=== PATIENT | male | born 1945 | race Caucasian/White ===

== ENCOUNTER 2018-03-31 06:20 | Emergency (ER) | payer MEDICARE, OTHER ==
[~2018-03-31 06:20] MED LIST: AEC81 PO; DIPH50 PO; EYE VITAMIN PO; FOLI1TAB15 PO; LEVO500T2 PO; METH25VI17 IJ; NAPR-1192 PO; PANT40TA25 PO; TUMERIC PO
== END 2018-03-31 07:24 | disposition home or self-care (01) ==
LOC: EDH 06:20
DX: R09.1 Pleurisy (principal); R05 Cough; R42 Dizziness and giddiness
CPT/HCPCS: 71045

== ENCOUNTER 2018-06-09 09:29 | Observation (INO) | payer OTHER ==
[~2018-06-09] VITALS: Ht 193 cm; Wt 113.4 kg
[2018-06-09 12:01] LABS: BASOPHILS % (AUTO) 0.5 % (0.0-5.0); EOSINOPHILS % (AUTO) 4.5 % (0.0-8.0); HEMATOCRIT 42.4 % (42-54); LYMPHOCYTES % (AUTO) 11.6 % (21.0-51.0); MEAN CORPUSCULAR HEMOGLOBIN 29.4 pg (27.0-33.0); MEAN CORPUSCULAR HGB CONC 33.4 g/dL (32.0-36.0); NEUTROPHILS % (AUTO) 75.4 % (40.0-77.0); PLATELET COUNT (AUTO) 148 K/uL (130-400); RED BLOOD CELL COUNT(AUTO) 4.82 MIL/uL (4.50-6.20); RED CELL DISTRIBUTION WIDTH 17.1 % (11.0-15.5)
[2018-06-09 12:16] LABS: POTASSIUM 4.4 mmol/L (3.5-5.1)
[2018-06-09 12:21] LABS: ALBUMIN 3.6 g/dL (3.5-5.0); BILIRUBIN,TOTAL 0.6 mg/dL (0.2-1.0); TOTAL PROTEIN, SERUM 7.1 g/dL (6.0-8.3)
[2018-06-09 13:09] LABS: APPEARANCE,URINE Clear (CLEAR); BILIRUBIN,URINE Negative (NEGATIVE); COLOR,URINE Yellow (YELLOW); GLUCOSE, URINE (UA) Negative (NEGATIVE); KETONES,URINE Negative (NEGATIVE); LEUKOCYTE ESTERASE ,URINE Negative (NEGATIVE); NITRATE,URINE Negative (NEGATIVE); OCCULT BLOOD,URINE Negative (NEGATIVE); PROTEIN,URINE Negative (NEGATIVE)
[2018-06-09] MEDS ORDERED: ACETAMINOPHEN 325 MG TAB PO PRN (15:15)
[2018-06-09] MEDS ORDERED: MORPHINE SULFATE 2 MG/ML 1ML SYG IV PRN (15:15)
[2018-06-09] MEDS ORDERED: HYDRALAZINE HCL 20 MG/ML VIAL IV PRN (15:15)
[2018-06-09] MEDS ORDERED: ONDANSETRON HCL 4 MG/2 ML VIAL IV PRN (15:15)
[2018-06-09] MEDS ORDERED: CLINDAMYCIN 600 MG/D5% WATER 50 ML IV SCH (15:15)
[2018-06-09 18:00] VITALS: BP 159/84
[2018-06-09] MEDS ORDERED: CLIN300C9 PO (18:43)
--- NOTE | 2018-06-09 19:20 | NUR ---
Notified Dr. Heaton of consult. rec'd orders to feed patient tonight.
[2018-06-09 19:35] VITALS: BP 152/84
[2018-06-09] MEDS ORDERED: FAMOTIDINE 20MG TAB 20 MG TAB PO SCH (21:00)
[2018-06-09] MEDS: CLINDAMYCIN 600 MG/D5% WATER 50 ML IV SCH (21:13)
[2018-06-09 23:09] VITALS: BP 137/73
[2018-06-10] VITALS (21 sets, daily range): BP systolic 114–155; BP diastolic 71–90
[2018-06-10] MEDS ORDERED: DIPHENHYDRAMINE HCL 50 MG CAPSULE PO PRN (00:30)
[2018-06-10] MEDS: CLINDAMYCIN 600 MG/D5% WATER 50 ML IV SCH ×3 (05:14→20:51)
[2018-06-10] MEDS: ENOXAPARIN SODIUM 30 MG/0.3 ML SQ SCH (08:37)
[2018-06-10] MEDS: PANTOPRAZOLE SODIUM 40 MG TABLET.DR PO SCH (08:37)
[2018-06-10] MEDS: ASPIRIN 81 MG EC TAB PO SCH (08:37)
--- NOTE | 2018-06-10 08:38 | NUR ---
DR. LEVI IN ROOM FOR INITIAL CONSULT WITH PT. REC'D ORDERS TO SCHEDULE FOR CUTTING OF SKIN AND REMOVAL OF FOREIGN BODY LEFT FOOT. RISKS AND BENEFITS DISCUSSED WITH PT BY . SCHEDULED PO MEDS AND LOVENOX HELD DUE TO TODAY'S PROCEDURE.
[2018-06-10] MEDS ORDERED: KETAMINE 50MG/ML SYRINGE 50 MG/ML DISP.SYRIN IV ONE (11:00)
[2018-06-10] MEDS ORDERED: MIDAZOLAM HCL 1 MG/ML 2ML VIAL ONE (11:04)
[2018-06-10] MEDS ORDERED: PROPOFOL 10 MG/ML 20ML VIAL IV ONE (11:04)
[2018-06-10] MEDS ORDERED: LIDOCAINE HCL 1% 20 ML VIAL ONE (11:07)
[2018-06-10] MEDS ORDERED: BUPIVACAINE/PF 0.5% 10ML VIAL ONE (11:08)
--- NOTE | 2018-06-10 12:45 | NUR ---
PT RETURNED FROM PACU S/P LEFT FOOT FOREIGN BODY REMOVAL. PER REPORT FROM PACU NURSE DAMEON, SMALL GLASS SHARD WAS REMOVED. DRESSING TO LEFT FOOT IS GAUZE AND ATIYA WRAP. IT IS CLEAN, DRY, AND INTACT. GOOD CAPILLARY REFILL TO TOES DISTAL TO BANDAGE. NORMAL SENSATION, TEMP, AND MOVEMENT TO DIGITS. POST OP VITALS INITIATED AND WNL. CALL LIGHT AND BEDSIDE TABLE IN EASY REACH. AT SIDE.
[2018-06-10] MEDS ORDERED: HYDROCODONE/ACETAMINOPHEN 5/325 MG TAB PO PRN (14:45)
[2018-06-11 00:11] VITALS: BP 150/81
[2018-06-11 04:00] VITALS: BP 121/69
[2018-06-11] MEDS: CLINDAMYCIN 600 MG/D5% WATER 50 ML IV SCH ×2 (05:24→13:39)
[2018-06-11 05:29] LABS: HEMATOCRIT 41.9 % (42-54); MEAN CORPUSCULAR HEMOGLOBIN 29.4 pg (27.0-33.0); MEAN CORPUSCULAR HGB CONC 33.2 g/dL (32.0-36.0); MEAN CORPUSCULAR VOLUME 88.6 fL (79-99); NUCLEATED RED BLOOD CELLS 0.1 % (0.0-0.19); PLATELET COUNT (AUTO) 162 K/uL (130-400); RED BLOOD CELL COUNT(AUTO) 4.73 MIL/uL (4.50-6.20); RED CELL DISTRIBUTION WIDTH 17.1 % (11.0-15.5); WHITE BLOOD COUNT (AUTO) 7.7 K/uL (4.8-10.8)
[2018-06-11 05:37] LABS: CREATININE 1.2 mg/dL (0.5-1.5); POTASSIUM 4.7 mmol/L (3.5-5.1)
[2018-06-11] MEDS: PANTOPRAZOLE SODIUM 40 MG TABLET.DR PO SCH (09:08)
[2018-06-11] MEDS: ASPIRIN 81 MG EC TAB PO SCH (09:08)
[2018-06-11] MEDS: ENOXAPARIN SODIUM 30 MG/0.3 ML SQ SCH (09:08)
[2018-06-11 09:12] VITALS: BP 133/73
[2018-06-11 12:09] VITALS: BP 135/77
--- NOTE | 2018-06-11 15:17 | NUR ---
Discharge teaching completed in the room with pt and at side. Emphasis on dx, s/s to monitor for, and when to seek emergency care / call 911. Emphasis on Dr. Heaton's orders for activity (heel walking with walker and post op shoe to left foot), and incision care (daily dressing changes with betadine, gauze.) No new rx. Unable to make appointments for follow up as today is Tuesday, but pt understands he must call to schedule for 3 days with PCP and [address] Heaton. All questions addressed. PIV removed, tip intact. Dressed with sterile 2x2 and tape after hemostasis. [facility] by [facility] staff for transport home via private vehicle. Pt in stable condition at time of discharge.
[2018-06-16] MEDS ORDERED: METHOTREXATE SODIUM/PF 25 MG/ML ML IJ SCH (09:00)
== END 2018-06-11 15:45 | disposition home or self-care (01) ==
LOC: EDH 09:29 → EDHIP 15:11 → 4CH 18:16
PROVIDERS: ADMIT Internal Medicine; ATTEND Internal Medicine
DX: M65.9 Synovitis and tenosynovitis, unspecified (principal); S90.852A Superficial foreign body, left foot, initial encounter; M79.672 Pain in left foot; I25.10 Atherosclerotic heart disease of native coronary artery without angina pectoris; I44.0 Atrioventricular block, first degree; I45.10 Unspecified right bundle-branch block; S91.332A Puncture wound without foreign body, left foot, initial encounter; W25.XXXA Contact with sharp glass, initial encounter; W45.8XXA Other foreign body or object entering through skin, initial encounter; Y93.89 Activity, other specified; Y92.89 Other specified places as the place of occurrence of the external cause; Y99.8 Other external cause status; Z95.1 Presence of aortocoronary bypass graft
CPT/HCPCS: 10120; 36415 ×2; 71045; 73630; 76882; 80048; 80053; 81003; 82550; 84484; 85025; 85027; 87070; 87076; 87205; 88300; 93005; 96365; 96366 ×2; 96372; 96375; 97116; 97161; 99284; A4649; A6446; G0378 ×49; G8978; G8979; G8980; G8981; G8982; G8983; J1650; J2250; J2704; J3490 ×8; J7120

== ENCOUNTER 2019-04-27 16:37 | Emergency (ER) | payer OTHER ==
[~2019-04-27 16:37] MED LIST changes: +CLIN300C9 PO; -LEVO500T2 PO; -NAPR-1192 PO; -TUMERIC PO
[2019-04-27] MEDS ORDERED: ASPIRIN 325 MG TABLET ONE (16:45)
[2019-04-27] MEDS ORDERED: NITROGLYCERIN 1GM/1 INCH PACKET TD ONE (17:04)
[2019-04-27 17:08] LABS: BASOPHILS % (AUTO) 0.5 % (0.0-5.0); EOSINOPHILS % (AUTO) 1.4 % (0.0-8.0); HEMATOCRIT 39.3 % (42-54); LYMPHOCYTES % (AUTO) 9.8 % (21.0-51.0); MEAN CORPUSCULAR HGB CONC 32.3 g/dL (32.0-36.0); MEAN CORPUSCULAR VOLUME 86.8 fL (79-99); MONOCYTES % (AUTO) 6.2 % (3.0-13.0); NEUTROPHILS % (AUTO) 81.4 % (40.0-77.0); PLATELET COUNT (AUTO) 197 K/uL (130-400); RED BLOOD CELL COUNT(AUTO) 4.53 MIL/uL (4.50-6.20); RED CELL DISTRIBUTION WIDTH 15.1 % (11.0-15.5); WHITE BLOOD COUNT (AUTO) 10.7 K/uL (4.8-10.8)
[2019-04-27 17:19] LABS: CREATININE 1.1 mg/dL (0.5-1.5); POTASSIUM 4.4 mmol/L (3.5-5.1)
[2019-04-27 17:21] LABS: INR 1.02 (0.85-1.15); PARTIAL THROMBOPLASTIN TIME 31.3 SEC (26.3-35.5); PROTHROMBIN TIME 10.7 SEC (9.6-11.6)
[2019-04-27 17:24] LABS: ALBUMIN 3.6 g/dL (3.5-5.0); BILIRUBIN,TOTAL 0.4 mg/dL (0.2-1.0); TOTAL PROTEIN, SERUM 7.5 g/dL (6.0-8.3)
[2019-04-27] MEDS ORDERED: CEFTRIAXONE SODIUM 1 GM ONE (18:16)
[2019-04-27] MEDS ORDERED: AZITHROMYCIN 500MG+NS 250ML 250 ML IV ONE (18:16)
[2019-04-27] MEDS ORDERED: SODIUM CHLORIDE 0.9% 100 ML IV ONE (18:17)
== END 2019-04-27 16:39 | disposition home or self-care (01) ==
LOC: EDH 16:37
DX: J18.1 Lobar pneumonia, unspecified organism (principal); J90 Pleural effusion, not elsewhere classified; Z87.891 Personal history of nicotine dependence; Z98.890 Other specified postprocedural states
CPT/HCPCS: 36415; 71045; 80053; 82550; 84484 ×2; 85025; 85610; 85730; 87804 ×2; 93005; 96365; 96366; 96375; 99284; J0456; J0696

== ENCOUNTER → 2019-05-23 | Outpatient (CLI) | payer OTHER | END | disposition home or self-care (01) | LOC: RAH 13:39 | PROVIDERS: ATTEND Internal Medicine | DX: J90 Pleural effusion, not elsewhere classified (principal) | CPT/HCPCS: 76604 ==

== ENCOUNTER 2019-06-27 11:51 | Day surgery (SDC) | payer OTHER ==
[~2019-06-27] VITALS: Ht 185.4 cm; Wt 111.1 kg
[2019-06-27] VITALS (25 sets, daily range): BP systolic 134–152; BP diastolic 74–85
[~2019-06-27 11:51] MED LIST changes: -CLIN300C9 PO; -DIPH50 PO; -EYE VITAMIN PO; +GUAI600T50 PO
[2019-06-27 13:05] LABS: INR 1.04 (0.85-1.15); PROTHROMBIN TIME 10.9 SEC (9.6-11.6)
[2019-06-27] MEDS ORDERED: PROPOFOL 10 MG/ML 20ML VIAL IV ONE (13:11)
[2019-06-27] MEDS ORDERED: BENZOCAINE 20% 57 GM SPRAY ONE (13:14)
[2019-06-27] MEDS ORDERED: EPINEPHRINE 1 MG/ML AMPULE ONE (13:23)
[2019-06-27] MEDS ORDERED: RACEPINEPHRINE HCL 2.25% 0.5 ML NEB SOLN ONE ×2 (13:55→14:27)
--- NOTE | 2019-06-27 14:12 | NUR ---
PROCEDURE DR PULIDO INFORMED PATIENT HAD AN EPISODE OF SPASMS TO THROAT PT WAS GRABBING HIS THROAT STATED HE COULDN'T BREATH'. RESP THERAPY CALLED ANESTHESIA AWARE. PT WAS TREATED , FURTHER ORDERS GIVEN AND WILL BE CARRIED OUT. WILL CONTINUE TO MONITOR
[2019-06-27] MEDS ORDERED: DEXAMETHASONE SOD PHOSPHATE 4 MG/ML 5ML VIAL ONE (14:14)
--- NOTE | 2019-06-27 14:15 | NUR ---
MED DECADRON IV GIVEN PER MD ORDERS , PATIENT RESTING 02 SAT 100 % ON ROOM AIR, WILL CONTINUE TO MONITOR
--- NOTE | 2019-06-27 14:28 | NUR ---
NEB RACEPINEPHRINE NEBULIZER BEING GIVEN AT THIS TIME BY NEIL Petty PER ANESTHESIA
--- NOTE | 2019-06-27 14:55 | NUR ---
MD DR. PULIDO CALLED INFORMED HIM PATIENT STATES "HAVING TROUBLE BRETHING" 02 SAT 99 % ON 02 3 L LNC. PT BREATH SOUND CLEAR BILATERALLY, SKIN COLOR PINK, PT SEEMS ANXIOUS, SPOUSE AT BEDSIDE. ORDERS RECEIVED TO OBTAIN STAT CHEST XRAY, ,ORDERED WILL CALL DR. PULIDO WITH RESULTS WHEN AVAILABLE.
[2019-06-27] MEDS ORDERED: DEXAMETHASONE SOD PHOSPHATE 4 MG/ML 1ML VIAL IVP SCH (15:45)
--- NOTE | 2019-06-27 15:54 | NUR ---
chest xray chest xray report reported to dr. godfrey. patient states feels alot better. denies any pain or discomforts. as per dr. godfrey pt may be discharge home.
--- NOTE | 2019-06-27 16:10 | NUR ---
dc pt dc home via [facility],no distress noted pt denied any pain or discomforts. pt accompanied by spouse
[2019-06-27 17:22] LABS: APPEARANCE BODY FLUID SLIGHTLY CLOUDY (CLEAR); COLOR,BODY FLUID COLORLESS (LT YELLOW); SPECIMENTYPE,BODY FLUID LAVAGE; TOTAL VOLUME,BODY FLUID 20 mL
[2019-06-27 17:23] LABS: BODY FLUID WBC 289 /cu. mm.
[2019-06-27 17:24] LABS: BODY FLUID RBC 453 /cu. mm.; SPECIMENTYPE,BODY FLUID LAVAGE
[2019-06-27 17:25] LABS: APPEARANCE BODY FLUID SLIGHTLY CLOUDY (CLEAR); BODY FLUID RBC 255 /cu. mm.; BODY FLUID WBC 177 /cu. mm.; COLOR,BODY FLUID COLORLESS (LT YELLOW); TOTAL VOLUME,BODY FLUID 30 mL
[2019-06-27 17:30] LABS: BF EOSINOPHIL 25 %; BF LYMPHOCYTE 16 %; BF MONOCYTE 2 %
[2019-06-27 17:31] LABS: BF EOSINOPHIL 29 %; BF LYMPHOCYTE 21 %
== END 2019-06-27 16:10 | disposition home or self-care (01) ==
LOC: DAH 11:51
PROVIDERS: ATTEND Internal Medicine
DX: J18.1 Lobar pneumonia, unspecified organism (principal); J20.9 Acute bronchitis, unspecified; J42 Unspecified chronic bronchitis; K21.9 Gastro-esophageal reflux disease without esophagitis; Z79.01 Long term (current) use of anticoagulants; Z87.891 Personal history of nicotine dependence
CPT/HCPCS: 31628; 31632; 36415; 71045; 85610; 87071 ×2; 87077 ×2; 87116 ×2; 87186 ×2; 87205 ×2; 87206 ×2; 88108; 88305; 89051 ×2; 94640 ×2; A4215; A4221; A4222; A4223; A4606; A4620; A4663; J0171; J1100 ×2; J2704; 31622; 31625